=== PATIENT | female | born 2000 | race American Indian/Alaskan Native ===

== ENCOUNTER 2020-07-28 12:03 | Emergency (ER) | payer SELFPAY ==
--- NOTE | 2020-07-28 13:21 | Emergency Department Report ---
ED Female HPI - General Chief complaint: Vaginal Bleeding Stated complaint: HEAVY BLEEDING [id number] Time Seen by Provider: 07/28/20 13:08 Source: patient Mode of arrival: Ambulatory Limitations: No Limitations - History of Present Illness Initial comments: 20-year-old female with no significant past history presents to the ER today with complaints of abnormal vaginal bleeding. Patient states that her menstrual cycle started normally around the beginning of July. She states that a line lasted 3 days, it stopped for 2-day and she started bleeding again around July 16 and she has continued to bleed. She states that the bleeding is heavier than normal and she is progressing blood clots. She reports associated intermittent abdominal cramping. She states that on average she has been changing 3 tampons per day. She has not had to use pads. She states that she did not have a menstrual cycle in June but she did have one in May. She states that her sexual preference is homosexuality but she admitted that she did have sexual intercourse with a male unprotected in May. She did not take a home test. She has never been before in the past. She denies any associated vaginal discharge, UTI symptoms or any other symptoms at this time. Complaint: vaginal bleeding -: Gradual (Since July 16) - Related Data Allergies Allergy/AdvReac Type Severity Reaction Status Date / Time No Known Allergies Allergy Unverified 07/28/20 12:22 ED Review of Systems ROS: Stated complaint: HEAVY BLEEDING [id number] Other details as noted in HPI Comment: All other systems reviewed and negative Constitutional: denies: chills, fever Eyes: denies: eye pain, eye discharge, vision change ENT: denies: ear pain, throat pain Respiratory: denies: cough, shortness of breath, SOB with exertion, SOB at rest, wheezing Cardiovascular: denies: chest pain, palpitations, dyspnea on exertion, orthopnea, edema, syncope, paroxysmal nocturnal dyspnea Gastrointestinal: abdominal pain. denies: nausea, vomiting, diarrhea, con stipation, hematemesis, melena, hematochezia Genitourinary: abnormal menses. denies: urgency, dysuria, frequency, hematuria, discharge, dyspareunia Musculoskeletal: denies: back pain, joint swelling, arthralgia Skin: denies: rash, lesions, change in color, change in hair/nails, pruritus Neurological: denies: headache, weakness, paresthesias Psychiatric: denies: anxiety, depression, auditory hallucinations, visual hallucinations, homicidal thoughts, suicidal thoughts Hematological/Lymphatic: denies: easy bleeding, easy bruising ED Past Medical Hx - Past Medical History Previous Medical History?: No - Surgical History Past Surgical History?: No - Social History Smoking Status: Never Smoker Substance Use Type: None ED Physical Exam - General Limitations: No Limitations ED Course Vital Signs 07/28/20 12:22 Temperature 98.2 F Pulse Rate 87 Respiratory 18 Rate Blood Pressure 132/77 O2 Sat by Pulse 98 Oximetry ED Medical Decision Making - Lab Data Result diagrams: 07/28/20 13:51 07/28/20 13:51 - Medical Decision Making 20-year-old female with no significant past history presents to the ER today with complaints of abnormal vaginal bleeding. Patient states that her menstrual cycle started normally around the beginning of July. She states that a line lasted 3 days, it stopped for 2-day and she started bleeding again around July 16 and she has continued to bleed. She states that the bleeding is heavier than normal and she is progressing blood clots. She reports associated intermittent abdominal cramping. She states that on average she has been changing 3 tampons per day. She has not had to use pads. She states that she did not have a menstrual cycle in June but she did have one in May. She states that her sexual preference is homosexuality but she admitted that she did have sexual intercourse with a male unprotected in May. She did not take a home test. She has never been before in the past. She denies any associated vaginal discharge, UTI symptoms or any other symptoms at this time. 1628: CBC, and CMP unremarkable, hCG negative, urinalysis normal. Patient currently resting comfortably, on the phone, she does not appear to be in any acute distress, she has a soft nontender abdomen, she is well-appearing, not toxic and appears well-hydrated. Discussed lab results with patient. At this time there is no indication for any further testing, emergent consult or admissions. Recommend that she follows up with her DIRECTOR OF CASINO this week for further evaluation. Patient stable at time of discharge. Critical care attestation.: If time is entered above; I have spent that time in minutes in the direct care of this critically ill patient, excluding procedure time. ED Disposition Clinical Impression: Abnormal vaginal bleeding Disposition: DC-01 TO HOME OR SELFCARE Is pt being admited?: No Does the pt Need Aspirin: No Condition: Stable Instructions: Abnormal Uterine Bleeding, [id number] Additional Instructions: I recommend that you follow-up with your DIRECTOR OF CASINO this week. You can take Tylenol and ibuprofen from [id number] to help with pain. Return to the ER if your symptoms worsens or changes in any way. Referrals: PRIMARY CARE, [Primary Care Provider] - 3-5 Days Forms: Work/School Release Form(ED) Time of Disposition: 16:17
[2020-07-28 14:36] LABS: Alanine Aminotransferase 33 units/L (7-56); Albumin 4.2 g/dL (3.9-5); Blood Urea Nitrogen 11 mg/dL (7-17); Calcium 8.9 mg/dL (8.4-10.2); Hemolysis Index 7
[2020-07-28 14:40] LABS: BUN/Creatinine Ratio 16
[2020-07-28 14:57] LABS: Basophils % (Auto) 0.3 % (0.0-1.8); Eosinophils # (Auto) 0.3 K/mm3 (0.0-0.4); Eosinophils % (Auto) 2.7 % (0.0-4.3); Hematocrit 38.8 % (30.3-42.9); Hemoglobin 12.8 gm/dl (10.1-14.3); Lymphocytes # (Auto) 2.7 K/mm3 (1.2-5.4); Lymphocytes % (Auto) 27.6 % (13.4-35.0); Mean Corpuscular HGB Conc 33 % (30-34); Mean Corpuscular Volume 80 fl (79-97); Monocytes # (Auto) 0.7 K/mm3 (0.0-0.8); Platelet Count 283 K/mm3 (140-440); Red Blood Count 4.83 M/mm3 (3.65-5.03); Red Cell Distribution Width 16.4 % (13.2-15.2)
[2020-07-28 16:01] LABS: Bilirubin,Urine NEG (Negative); Blood,Urine LG (Negative); Color,Urine Yellow (Yellow); Mucus,Urine FEW /HPF; Protein,Urine <15 mg/dL mg/dL (Negative); Urobilinogen,Urine < 2.0 mg/dL (<2.0)
[2020-07-28 16:02] LABS: HCG Qualitative,Urine Negative (Negative)
[2020-07-28 16:39] VITALS: BP 141/92
== END 2020-07-28 16:39 | disposition home or self-care (01) ==
LOC: ED 12:03
DX: N93.9 Abnormal uterine and vaginal bleeding, unspecified (principal)
CPT/HCPCS: 36415; 80053; 81001; 81025; 84703; 85025

== ENCOUNTER 2020-12-25 22:45 | Emergency (ER) | payer MEDICAID ==
[2020-12-25] MEDS ORDERED: SODIUM CHLORIDE 0.9% 1000 ML 1,000 ML IV ONE (23:03)
--- NOTE | 2020-12-25 23:12 | Emergency Department Report ---
<BENSON GOMES - Last Filed: 12/26/20 08:44> History of Present Illness - General Chief Complaint: Overdose Stated Complaint: SUICIDAL IDEATION/DEPRESSION Time Seen by Provider: 12/25/20 22:59 - Related Data Home Medications Medication Instructions Recorded Confirmed Last Taken No Known Home Medications [No 12/26/20 12/26/20 Unknown Reported Home Medications] Allergies Allergy/AdvReac Type Severity Reaction Status Date / Time No Known Allergies Allergy Unverified 07/28/20 12:22 ED Past Medical Hx - Medications Home Medications: Home Medications Medication Instructions Recorded Confirmed Last Taken Type No Known Home Medications [No 12/26/20 12/26/20 Unknown History Reported Home Medications] ED Medical Decision Making - Lab Data Result diagrams: 12/26/20 00:06 12/26/20 00:06 Lab Results 12/26/20 12/26/20 12/26/20 Range/Units 00:06 00:06 00:06 WBC 10.5 (4.5-11.0) K/mm3 RBC 5.02 (3.65-5.03) M/mm3 Hgb 11.5 (10.1-14.3) gm/dl Hct 35.0 (30.3-42.9) % MCV 70 L (79-97) fl MCH 23 L (28-32) pg MCHC 33 (30-34) % RDW 22.9 H (13.2-15.2) % Plt Count 324 (140-440) K/mm3 Lymph % (Auto) 25.5 (13.4-35.0) % Angelina % (Auto) 6.0 (0.0-7.3) % Eos % (Auto) 2.0 (0.0-4.3) % Baso % (Auto) 0.5 (0.0-1.8) % Lymph # (Auto) 2.7 (1.2-5.4) K/mm3 Angelina # (Auto) 0.6 (0.0-0.8) K/mm3 Eos # (Auto) 0.2 (0.0-0.4) K/mm3 Baso # (Auto) 0.0 (0.0-0.1) K/mm3 Seg Neutrophils % 66.0 (40.0-70.0) % Seg Neutrophils # 6.9 (1.8-7.7) K/mm3 Sodium 139 (137-145) mmol/L Potassium 4.5 (3.6-5.0) mmol/L Chloride 102.5 (98-107) mmol/L Carbon Dioxide 26 (22-30) mmol/L Anion Gap 15 mmol/L BUN 10 (7-17) mg/dL Creatinine 0.9 (0.6-1.2) mg/dL Estimated GFR > 60 ml/min BUN/Creatinine Ratio 11 % Glucose 100 (65-100) mg/dL Calcium 9.4 (8.4-10.2) mg/dL Total Bilirubin 0.20 (0.1-1.2) mg/dL AST 18 (5-40) units/L ALT 27 (7-56) units/L Alkaline Phosphatase 115 (35-129) units/L Total Protein 7.3 (6.3-8.2) g/dL Albumin 4.3 (3.9-5) g/dL Albumin/Globulin Ratio 1.4 % HCG, Qual (Negative) Urine Color (Yellow) Urine Turbidity (Clear) Urine pH (5.0-7.0) Ur Specific [place] (1.003-1.030) Urine Protein (Negative) mg/dL Urine Glucose (UA) (Negative) mg/dL Urine Ketones (Negative) mg/dL Urine Blood (Negative) Urine Nitrite (Negative) Urine Bilirubin (Negative) Urine Urobilinogen (<2.0) mg/dL Ur Leukocyte Esterase (Negative) Urine WBC (Auto) (0.0-6.0) /HPF Urine RBC (Auto) (0.0-6.0) /HPF U Epithel Cells (Auto) (0-13.0) /HPF Urine Bacteria (Auto) (Negative) /HPF Salicylates < 0.3 L (2.8-20.0) mg/dL Urine Opiates Screen Urine Methadone Screen Acetaminophen (10.0-30.0) ug/mL Ur Barbiturates Screen Ur Phencyclidine Scrn Ur Amphetamines Screen U Benzodiazepines Scrn Urine Cocaine Screen U Marijuana (THC) Screen Drugs of Abuse Note Plasma/Serum Alcohol (0-0.07) % 12/26/20 12/26/20 12/26/20 Range/Units 00:06 00:06 01:25 WBC (4.5-11.0) K/mm3 RBC (3.65-5.03) M/mm3 Hgb (10.1-14.3) gm/dl Hct (30.3-42.9) % MCV (79-97) fl MCH (28-32) pg MCHC (30-34) % RDW (13.2-15.2) % Plt Count (140-440) K/mm3 Lymph % (Auto) (13.4-35.0) % Angelina % (Auto) (0.0-7.3) % Eos % (Auto) (0.0-4.3) % Baso % (Auto) (0.0-1.8) % Lymph # (Auto) (1.2-5.4) K/mm3 Angelina # (Auto) (0.0-0.8) K/mm3 Eos # (Auto) (0.0-0.4) K/mm3 Baso # (Auto) (0.0-0.1) K/mm3 Seg Neutrophils % (40.0-70.0) % Seg Neutrophils # (1.8-7.7) K/mm3 Sodium (137-145) mmol/L Potassium (3.6-5.0) mmol/L Chloride (98-107) mmol/L Carbon Dioxide (22-30) mmol/L Anion Gap mmol/L BUN (7-17) mg/dL Creatinine (0.6-1.2) mg/dL Estimated GFR ml/min BUN/Creatinine Ratio % Glucose (65-100) mg/dL Calcium (8.4-10.2) mg/dL Total Bilirubin (0.1-1.2) mg/dL AST (5-40) units/L ALT (7-56) units/L Alkaline Phosphatase (35-129) units/L Total Protein (6.3-8.2) g/dL Albumin (3.9-5) g/dL Albumin/Globulin Ratio % HCG, Qual Negative (Negative) Urine Color (Yellow) Urine Turbidity (Clear) Urine pH (5.0-7.0) Ur Specific [place] (1.003-1.030) Urine Protein (Negative) mg/dL Urine Glucose (UA) (Negative) mg/dL Urine Ketones (Negative) mg/dL Urine Blood (Negative) Urine Nitrite (Negative) Urine Bilirubin (Negative) Urine Urobilinogen (<2.0) mg/dL Ur Leukocyte Esterase (Negative) Urine WBC (Auto) (0.0-6.0) /HPF Urine RBC (Auto) (0.0-6.0) /HPF U Epithel Cells (Auto) (0-13.0) /HPF Urine Bacteria (Auto) (Negative) /HPF Salicylates (2.8-20.0) mg/dL Urine Opiates Screen Urine Methadone Screen Acetaminophen 5.0 L (10.0-30.0) ug/mL Ur Barbiturates Screen Ur Phencyclidine Scrn Ur Amphetamines Screen U Benzodiazepines Scrn Urine Cocaine Screen U Marijuana (THC) Screen Drugs of Abuse Note Plasma/Serum Alcohol < 0.01 (0-0.07) % 12/26/20 12/26/20 Range/Units Unknown Unknown WBC (4.5-11.0) K/mm3 RBC (3.65-5.03) M/mm3 Hgb (10.1-14.3) gm/dl Hct (30.3-42.9) % MCV (79-97) fl MCH (28-32) pg MCHC (30-34) % RDW (13.2-15.2) % Plt Count (140-440) K/mm3 Lymph % (Auto) (13.4-35.0) % Angelina % (Auto) (0.0-7.3) % Eos % (Auto) (0.0-4.3) % Baso % (Auto) (0.0-1.8) % Lymph # (Auto) (1.2-5.4) K/mm3 Angelina # (Auto) (0.0-0.8) K/mm3 Eos # (Auto) (0.0-0.4) K/mm3 Baso # (Auto) (0.0-0.1) K/mm3 Seg Neutrophils % (40.0-70.0) % Seg Neutrophils # (1.8-7.7) K/mm3 Sodium (137-145) mmol/L Potassium (3.6-5.0) mmol/L Chloride (98-107) mmol/L Carbon Dioxide (22-30) mmol/L Anion Gap mmol/L BUN (7-17) mg/dL Creatinine (0.6-1.2) mg/dL Estimated GFR ml/min BUN/Creatinine Ratio % Glucose (65-100) mg/dL Calcium (8.4-10.2) mg/dL Total Bilirubin (0.1-1.2) mg/dL AST (5-40) units/L ALT (7-56) units/L Alkaline Phosphatase (35-129) units/L Total Protein (6.3-8.2) g/dL Albumin (3.9-5) g/dL Albumin/Globulin Ratio % HCG, Qual (Negative) Urine Color Yellow (Yellow) Urine Turbidity Slightly-cloudy (Clear) Urine pH 6.0 (5.0-7.0) Ur Specific [place] 1.013 (1.003-1.030) Urine Protein <15 mg/dl (Negative) mg/dL Urine Glucose (UA) Neg (Negative) mg/dL Urine Ketones Neg (Negative) mg/dL Urine Blood Neg (Negative) Urine Nitrite Neg (Negative) Urine Bilirubin Neg (Negative) Urine Urobilinogen < 2.0 (<2.0) mg/dL Ur Leukocyte Esterase Neg (Negative) Urine WBC (Auto) < 1.0 (0.0-6.0) /HPF Urine RBC (Auto) 2.0 (0.0-6.0) /HPF U Epithel Cells (Auto) 18.0 H (0-13.0) /HPF Urine Bacteria (Auto) 1+ (Negative) /HPF Salicylates (2.8-20.0) mg/dL Urine Opiates Screen Negative Urine Methadone Screen Negative Acetaminophen (10.0-30.0) ug/mL Ur Barbiturates Screen Negative Ur Phencyclidine Scrn Negative Ur Amphetamines Screen Negative U Benzodiazepines Scrn Negative Urine Cocaine Screen Negative U Marijuana (THC) Screen Negative Drugs of Abuse Note Disclamer Plasma/Serum Alcohol (0-0.07) % - EKG Data 12/26/20 08:45 EKG shows a sinus tachycardia rate of 119. [place] is normal intervals are normal. T wave flattening in a nonspecific pattern. Time of interpretation 134. No evidence of any QT prolongation. ED Disposition Clinical Impression: Suicidal ideation, Suicide attempt Overdose Qualifiers: Encounter type: initial encounter Injury intent: intentional self-harm Qualified Code(s): T50.902A - Poisoning by unspecified drugs, medicaments and biological substances, intentional self-harm, initial encounter Dis[facility]: [facility] Condition: Stable Referrals: PRIMARY CARE, [Primary Care Provider] - 3-5 Days <CLARKE SIMPSONCARLOS - Last Filed: 01/01/21 00:38> History of Present Illness - History of Present Illness Initial Comments: Patient is a 20-year-old female that presents emergency room with complaints of depression, suicidal ideation and a suicide attempt. Patient states she took a handful of Benadryl. Patient states she believes the Benadryl 50 mg. Patient states that she took approximately 10 of them. Patient brought in by EMS. Report received from EMS. Patient denies homicidal ideation. Patient denies hallucinations. Patient denies pain. Patient denies chest pain. Patient denies shortness of breath. Patient states she took the medications at 9 PM. Patient denies recent travel. Patient denies recent international travel. Patient denies exposure to the novel coronavirus. Patient denies sick contacts. Patient denies fever and chills. Patient denies cough. Patient denies diarrhea. Patient denies coming in contact with anybody with symptoms of the novel coronavirus. Patient is not vaccinated against COVID-19. Complaint: intentional overdose -: Sudden Intent: suicide attempt How Overdose Was Discovered: called family/friend, called 911 Context: Intentional Overdose: relationship problems Associated Symptoms: depression Treatments Prior to Arrival: none ED Review of Systems ROS: Stated complaint: SUICIDAL IDEATION/DEPRESSION Other details as noted in HPI Constitutional: denies: chills, fever Eyes: denies: eye pain, eye discharge, vision change ENT: denies: ear pain, throat pain Respiratory: denies: cough, shortness of breath, wheezing Cardiovascular: denies: chest pain, palpitations Endocrine: no symptoms reported Gastrointestinal: denies: abdominal pain, nausea, diarrhea Genitourinary: denies: urgency, dysuria, discharge Musculoskeletal: denies: back pain, joint swelling, arthralgia Skin: denies: rash, lesions Neurological: denies: headache, weakness, paresthesias Psychiatric: denies: anxiety, depression Hematological/Lymphatic: denies: easy bleeding, easy bruising ED Past Medical Hx - Past Medical History Previous Medical History?: Yes Hx Psychiatric Treatment: Yes (Depression) - Surgical History Past Surgical History?: No - Family History Family history: no significant - Social History Smoking Status: Never Smoker Substance Use Type: None ED Physical Exam - General Limitations: No Limitations General appearance: alert, in no apparent distress - Head Head exam: Present: atraumatic, normocephalic - Eye Eye exam: Present: normal appearance - ENT ENT exam: Present: mucous membranes moist - Neck Neck exam: Present: normal inspection - Respiratory Respiratory exam: Present: normal lung sounds bilaterally. Absent: respiratory distress - Cardiovascular Cardiovascular Exam: Present: regular rate, normal rhythm. Absent: systolic murmur, diastolic murmur, rubs, gallop - GI/Abdominal GI/Abdominal exam: Present: soft, normal bowel sounds - Extremities Exam Extremities exam: Present: normal inspection - Back Exam Back exam: Present: normal inspection - Neurological Exam Neurological exam: Present: alert, oriented X3 - Psychiatric Psychiatric exam: Present: depressed - Skin Skin exam: Present: warm, dry, intact, normal color. Absent: rash ED Course Vital Signs 12/25/20 12/26/20 12/26/20 23:02 00:11 00:15 Temperature Pulse Rate 112 H Respiratory 26 H 14 31 H Rate Blood Pressure Blood Pressure [Left] O2 Sat by Pulse 98 Oximetry 12/26/20 12/26/20 12/26/20 00:31 00:45 01:01 Temperature Pulse Rate 121 H 111 H 119 H Respiratory 30 H 17 31 H Rate Blood Pressure 132/88 132/88 147/80 Blood Pressure [Left] O2 Sat by Pulse 99 100 99 Oximetry 12/26/20 12/26/20 12/26/20 01:15 01:31 01:45 Temperature Pulse Rate 127 H 118 H Respiratory 32 H 29 H 32 H Rate Blood Pressure 147/80 132/97 132/97 Blood Pressure [Left] O2 Sat by Pulse 100 100 99 Oximetry 12/26/20 12/26/20 12/26/20 02:01 02:15 02:31 Temperature Pulse Rate 117 H 118 H 110 H Respiratory 20 26 H 19 Rate Blood Pressure 129/94 129/94 126/96 Blood Pressure [Left] O2 Sat by Pulse 98 99 100 Oximetry 12/26/20 12/26/20 12/26/20 02:45 03:01 03:15 Temperature Pulse Rate 116 H 118 H 111 H Respiratory 29 H 22 20 Rate Blood Pressure 126/96 139/87 139/87 Blood Pressure [Left] O2 Sat by Pulse 100 98 100 Oximetry 12/26/20 12/26/20 12/26/20 03:31 03:46 04:37 Temperature Pulse Rate 126 H 128 H Respiratory 16 18 15 Rate Blood Pressure 140/90 140/90 140/90 Blood Pressure [Left] O2 Sat by Pulse 99 Oximetry 12/26/20 12/26/20 12/26/20 05:01 05:15 05:30 Temperature Pulse Rate 106 H 113 H Respiratory 25 H 19 18 Rate Blood Pressure 137/87 140/90 Blood Pressure [Left] O2 Sat by Pulse 97 100 98 Oximetry 12/26/20 12/26/20 12/26/20 05:31 05:45 16:39 Temperature 98.9 F Pulse Rate 120 H 109 H 89 Respiratory 15 26 H 16 Rate Blood Pressure 140/90 140/90 Blood Pressure 114/69 [Left] O2 Sat by Pulse 99 99 100 Oximetry - Reevaluation(s) Reevaluation #1: The nurse has contacted poison control. We will wait recommendations. Report received from EMS. Patient placed on a 1013 and an ER hold. 12/25/20 23:02 Reevaluation #2: Patient is tachycardic. Patient blood pressure stable. Patient denies agitation. Patient denies anxiety. Patient denies fatigue. 12/26/20 00:27 Reevaluation #3: Patient states she feels fine. Patient states she is still depressed. 12/26/20 01:28 Reevaluation #4: Patient is medically cleared. Patient will remain in the ER as an ER hold and a 1013 until cleared by psychiatry. Patient will be transferred to our psychiatry area. 12/26/20 05:07 - Consultations Consultation #1: NIKKI BYRNES Female : 2000 MedRec# [id number] 12/25/20 23:50 - Nurse Note by JENNIFER RDORIGEZ Acct Num: [id number] : 2000 Patient Age: 20 I spoke with Curly at [place] poison control . They patient took the medication around 2100 tonight. Symptomatic and supportive care Monitor the patient for 6-8 hours Order the mental health order set EKG Benzos for agitation Initialized on 12/25/20 23:50 - END OF NOTE ED Medical Decision Making - Lab Data Result diagrams: 12/26/20 00:06 12/26/20 00:06 - EKG Data -: EKG Interpreted by Me EKG shows normal: sinus rhythm, axis, intervals, QRS complexes, ST-T waves Rate: tachycardia - Medical Decision Making Patient is a 20-year-old female who presents emergency room with complaints of depression, suicidal ideations and suicide attempt. Patient states she took approximately 10 tablets of 50 mg Benadryl. Patient states she took it with the intent of killing herself. Patient states she been very depressed. States had depression for many years. After initial evaluation, poison control was co ntacted and the recommendations were received. Poison control recommended monitoring for 6 to 8 hours. Patient was monitored for ample amount of time. Patient had labs done which were essentially unremarkable. Patient had EKG done which showed sinus tachycardia. I personally reviewed the EKG. Patient is medically cleared. Patient not require further emergency medical services. Patient does not require inpatient services. Patient will remain in the ER as an ER hold until the patient is cleared by our psychiatry team. Patient's final disposition will come from our psychiatry team. Critical care time documented due to the multiple reassessments, prolonged time at the bedside, interpretation of diagnostics and labs. - Differential Diagnosis Overdose, suicidal ideation, suicide attempt by overdose Critical Care Time: Yes Critical care time in (mins) excluding proc time.: 35 Critical care attestation.: If time is entered above; I have spent that time in minutes in the direct care of this critically ill patient, excluding procedure time. Critical Care Time: 35 minutes ED Disposition Is pt being admited?: No Does the pt Need Aspirin: No Time of Disposition: 05:07
[2020-12-26 00:34] LABS: Basophils % (Auto) 0.5 % (0.0-1.8); Eosinophils # (Auto) 0.2 K/mm3 (0.0-0.4); Hemoglobin 11.5 gm/dl (10.1-14.3); Lymphocytes # (Auto) 2.7 K/mm3 (1.2-5.4); Lymphocytes % (Auto) 25.5 % (13.4-35.0); Mean Corpuscular HGB Conc 33 % (30-34); Monocytes # (Auto) 0.6 K/mm3 (0.0-0.8); Platelet Count 324 K/mm3 (140-440); Red Blood Count 5.02 M/mm3 (3.65-5.03)
[2020-12-26 00:58] LABS: Alanine Aminotransferase 27 units/L (7-56); Albumin 4.3 g/dL (3.9-5); BUN/Creatinine Ratio 11; Blood Urea Nitrogen 10 mg/dL (7-17); Calcium 9.4 mg/dL (8.4-10.2); Hemolysis Index 1
[2020-12-26 01:07] LABS: Mean Corpuscular Volume 70 fl (79-97); Red Cell Distribution Width 22.9 % (13.2-15.2)
[2020-12-26] MEDS ORDERED: SODIUM CHLORIDE 0.9% 1000 ML 1,000 ML IV ONE (01:24)
[2020-12-26] MEDS ORDERED: ONDANSETRON 4 MG/2 ML INJ IV ONE (03:09)
[2020-12-26 07:41] LABS: Bacteria,Urine 1+ /HPF (Negative); Bilirubin,Urine NEG (Negative); Blood,Urine NEG (Negative); Color,Urine Yellow (Yellow); Protein,Urine <15 mg/dL mg/dL (Negative); Urobilinogen,Urine < 2.0 mg/dL (<2.0); WBC,Urine < 1.0 /HPF (0.0-6.0)
[2020-12-26 07:48] LABS: Amphetamine Screen,Urine Negative; Benzodiazepines Screen,Urine Negative; Cannabinoid Screen,Urine Negative; Cocaine Screen,Urine Negative; Methadone Screen,Urine Negative; Opiate Screen,Urine Negative
--- NOTE | 2020-12-26 10:41 | Consultation ---
History of Present Illness - Reason for Consult Consult date: 12/26/20 Reason for consult: Mental health eval - History of Present Psychiatric Illness Per ED Note: Patient is a 20-year-old female that presents emergency room with complaints of depression, suicidal ideation and a suicide attempt. Patient states she took a handful of Benadryl. Patient states she believes the Benadryl 50 mg. Patient states that she took approximately 10 of them. Patient brought in by EMS. Report received from EMS. Patient denies homicidal ideation. Patient denies hallucinations. Patient denies pain. Patient denies chest pain. Patient denies shortness of breath. Patient states she took the medications at 9 PM. Irma Werner is a 20 year old female with no prior psychiatric diagnosis and she is naive to psychotropic medications who presents to the ED with suicidal ideation and attempt via overdosing on pills (Benadryl). In my interview with the patient, she reports feeling tired and overwhelmed. She reports stressors such as her recent break up with her boyfriend. The patient states she recently moved into an apartment alone and she has been feeling very depressed and anxious because of her unemployment and difficulty meeting up with her bills. The patient does not have any family support. She reports having intermittent suicidal thoughts but denies having any current suicidal ideation and hallucina tions today. PAST PSYCHIATRIC HISTORY: Diagnoses: Denies Suicide attempts or Self-harm behavior: Denies Prior psychiatric hospitalizations: Denies Substance Abuse history: Denies Previous psychiatric medications tried: Denies Outpatient treatment: denies PAST MEDICAL HISTORY: None reported or document Family Psychiatric History: None reported or documented SOCIAL HISTORY Marital Status: Single Living Arrangements: Lives alone Employment Status: Unemployed Access to guns/weapons: denies Education: 2 year college History of Abuse:Denies Legal History: Denies REVIEW OF SYSTEMS Constitutional: Negative for weight loss ENT: Negative for stridor Respiratory: Negative for cough or hemoptysis All other systems reviewed and are negative MENTAL STATUS EXAMINATION General Appearance and Behavior: Age appropriate, good hygiene, wearing alek ropriate clothes, calm and cooperative polite with questioning. Cooperation: engaged Psychomotor Behavior: Psychomotor normal Mood:Depressed Affect and affective range: congruent with stated mood Thought Process: goal directed Thought Content: Not suicidal Speech: Normal volume, Regular rate and rhythm, Suicidal Ideation: Denies Homicidal Ideation: Denies Hallucinations: Denies Delusions: None elicited Impulse Control: Unimpaired Insight and Judgment: Limited Memory: Abnormal Attention: attentive Orientation: alert and oriented Assessment and Plan (1) Major depressive disorder, recurrent,severe-F33.1 Current Visit: Yes Status: Acute Treatment Plan Continue 1013 Start Zoloft 25mg po Daily Star Vistaril 25 mg po TID The patient to comply with previously prescribed medications Risks, benefits and alternatives of medications discussed with the patient, questions answered and consent obtained from patient. PSYCHOTHERAPY: Supportive psychotherapy provided MEDICAL: Per primary team DELIRIUM PRECAUTIONS: Please re-orient patient frequently, keep lights on during the day, and minimize benzodiazepines and opiates as these medications could worsen patient's confusion. 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 FOLLOW-UP: Will follow Thank you for the consult. Please contact with any questions and/or concerns. Medications and Allergies Allergies Allergy/AdvReac Type Severity Reaction Status Date / Time No Known Allergies Allergy Unverified 07/28/20 12:22 Home Medications Medication Instructions Recorded Confirmed Last Taken Type No Known Home Medications [No 12/26/20 12/26/20 Unknown History Reported Home Medications] Mental Status Exam - Vital signs Last Vital Signs Temp Pulse 109 H 12/26/20 05:45 Resp 26 H 12/26/20 05:45 BP 140/90 12/26/20 05:45 Pulse Ox 99 12/26/20 05:45 Results Result Diagrams: 12/26/20 00:06 12/26/20 00:06 Abnormal lab results 12/26/20 12/26/20 12/26/20 Range/Units 00:06 00:06 00:06 MCV 70 L (79-97) fl MCH 23 L (28-32) pg RDW 22.9 H (13.2-15.2) % U Epithel Cells (Auto) (0-13.0) /HPF Salicylates < 0.3 L (2.8-20.0) mg/dL Acetaminophen 5.0 L (10.0-30.0) ug/mL 12/26/20 Range/Units Unknown MCV (79-97) fl MCH (28-32) pg RDW (13.2-15.2) % U Epithel Cells (Auto) 18.0 H (0-13.0) /HPF Salicylates (2.8-20.0) mg/dL Acetaminophen (10.0-30.0) ug/mL All other labs normal.
--- NOTE | 2020-12-26 10:42 | Electrocardiograph Report ---
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
--- NOTE | 2020-12-26 10:46 | Event Note ---
Date: 12/26/20 Patient resting comfortably the rest of the night. Patient is currently medically cleared and is been here in 6 hours without any significant events from the overdose. Patient seen by our mental health assessment team and was deemed worthy of a 1013. Patient awaiting placement. Psychiatric Consult Note Patient Name: NIKKI BYRNES Date of : [birth year] Patient Status: Emergency Emergency Provider: CARLOS MIR III Date: 12/26/20 10:38 Initialization Date: 12/26/20 10:38 History of Present Illness - Reason for Consult Consult date: 12/26/20 Reason for consult: Mental health eval - History of Present Psychiatric Illness PAST PSYCHIATRIC HISTORY: Diagnoses: Denies Suicide attempts or Self-harm behavior: Denies Prior psychiatric hospitalizations: Denies Substance Abuse history: Denies Previous psychiatric medications tried: Denies Outpatient treatment: denies PAST MEDICAL HISTORY: None reported or document Family Psychiatric History: None reported or documented SOCIAL HISTORY Marital Status: Single Living Arrangements: Lives alone Employment Status: Unemployed Access to guns/weapons: denies Education: 2 year college History of Abuse:Denies Legal History: Denies REVIEW OF SYSTEMS Constitutional: Negative for weight loss ENT: Negative for stridor Respiratory: Negative for cough or hemoptysis All other systems reviewed and are negative MENTAL STATUS EXAMINATION General Appearance and Behavior: Age appropriate, good hygiene, wearing a ppropriate clothes, calm and cooperative polite with questioning. Cooperation: engaged Psychomotor Behavior: Psychomotor normal Mood:Depressed Affect and affective range: congruent with stated mood Thought Process: goal directed Thought Content: Not suicidal Speech: Normal volume, Regular rate and rhythm, Suicidal Ideation: Denies Homicidal Ideation: Denies Hallucinations: Denies Delusions: None elicited Impulse Control: Unimpaired Insight and Judgment: Limited Memory: Abnormal Attention: attentive Orientation: alert and oriented Assessment and Plan (1) Major depressive disorder, recurrent,severe-F33.1 Current Visit: Yes Status: Acute Treatment Plan Continue 1013 Start Zoloft 25mg po Daily Star Vistaril 25 mg po TID The patient to comply with previously prescribed medications Risks, benefits and alternatives of medications discussed with the patient, questions answered and consent obtained from patient. PSYCHOTHERAPY: Supportive psychotherapy provided MEDICAL: Per primary team DELIRIUM PRECAUTIONS: Please re-orient patient frequently, keep lights on during the day, and minimize benzodiazepines and opiates as these medications could worsen patient's confusion. 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 FOLLOW-UP: Will follow Thank you for the consult. Please contact with any questions and/or concerns. Medications and Allergies Allergies Allergy/AdvReac Type Severity Reaction Status Date / Time No Known Allergies Allergy Unverified 07/28/20 12:22 Home Medications Medication Instructions Recorded Confirmed Last Taken Type No Known Home Medications [No 12/26/20 12/26/20 Unknown History Reported Home Medications] Mental Status Exam - Vital signs Last Vital Signs Temp Pulse 109 H 12/26/20 05:45 Resp 26 H 12/26/20 05:45 BP 140/90 12/26/20 05:45 Pulse Ox 99 12/26/20 05:45 Results Result Diagrams: 12/26/20 00:06 [Image 0] 12/26/20 00:06 [Image 1] Abnormal lab results 12/26/20 12/26/20 12/26/20 Range/Units 00:06 00:06 00:06 MCV 70 L (79-97) fl MCH 23 L (28-32) pg RDW 22.9 H (13.2-15.2) % U Epithel Cells (Auto) (0-13.0) /HPF Salicylates < 0.3 L (2.8-20.0) mg/dL Acetaminophen 5.0 L (10.0-30.0) ug/mL 12/26/20 Range/Units Unknown MCV (79-97) fl MCH (28-32) pg RDW (13.2-15.2) % U Epithel Cells (Auto) 18.0 H (0-13.0) /HPF Salicylates (2.8-20.0) mg/dL Acetaminophen (10.0-30.0) ug/mL All other labs normal.
[2020-12-26] MEDS ORDERED: SERTRALINE 25 MG TAB PO SCH (11:00)
[2020-12-26] MEDS ORDERED: hydrOXYzine PAMOATE 25 MG CAP PO SCH (14:00)
[2020-12-26 16:40] VITALS: BP 114/69
== END 2020-12-26 16:39 ==
LOC: ED 22:45
DX: T45.0X2A Poisoning by antiallergic and antiemetic drugs, intentional self-harm, initial encounter (principal); F32.9 Major depressive disorder, single episode, unspecified; Z20.822 Contact with and (suspected) exposure to COVID-19; Y92.89 Other specified places as the place of occurrence of the external cause
CPT/HCPCS: 36415; 80053; 80307; 81001; 84703; 85025; 93005; 96361; 96374; 99285; J2405; J7030; U0003; 80320; G0480; Q0177